=== PATIENT | female | born 1960 | race Hispanic/Latino ===

== ENCOUNTER 2017-08-27 08:28 | Emergency (ER) | payer OTHER ==
[2017-08-27] MEDS ORDERED: IBUPROFEN 600 MG TABLET ONE (11:30)
== END 2017-08-27 12:04 | disposition home or self-care (01) ==
LOC: EDH 08:28
DX: S60.811A Abrasion of right wrist, initial encounter (principal); I10 Essential (primary) hypertension; M19.90 Unspecified osteoarthritis, unspecified site; V49.49XA Driver injured in collision with other motor vehicles in traffic accident, initial encounter; Y93.89 Activity, other specified; Y92.89 Other specified places as the place of occurrence of the external cause; Y99.8 Other external cause status
CPT/HCPCS: 73090; 73110

== ENCOUNTER 2018-12-15 10:00 | Inpatient (IN) | payer OTHER, MEDICARE ==
[~2018-12-15] VITALS: Ht 157.5 cm; Wt 110.4 kg
[2018-12-15 11:58] LABS: APPEARANCE,URINE Cloudy (CLEAR); BILIRUBIN,URINE Negative (NEGATIVE); COLOR,URINE Yellow (YELLOW); GLUCOSE, URINE (UA) 250 mg/dL (NEGATIVE); KETONES,URINE Negative (NEGATIVE); LEUKOCYTE ESTERASE ,URINE Small (NEGATIVE); NITRATE,URINE Negative (NEGATIVE); OCCULT BLOOD,URINE Negative (NEGATIVE); PH,URINE 5.5 (5.0-8.0); PROTEIN,URINE Negative (NEGATIVE)
[2018-12-15 11:59] LABS: BASOPHILS % (AUTO) 0.3 % (0.0-5.0); EOSINOPHILS % (AUTO) 1.1 % (0.0-8.0); HEMATOCRIT 42.3 % (36-48); LYMPHOCYTES % (AUTO) 32.6 % (21.0-51.0); MEAN CORPUSCULAR HEMOGLOBIN 28.7 pg (27.0-33.0); MEAN CORPUSCULAR HGB CONC 34.6 g/dL (32.0-36.0); MEAN CORPUSCULAR VOLUME 83.2 fL (79-99); MONOCYTES % (AUTO) 10.4 % (3.0-13.0); NEUTROPHILS % (AUTO) 55.6 % (40.0-77.0); PLATELET COUNT (AUTO) 254 K/uL (130-400); RED BLOOD CELL COUNT(AUTO) 5.08 MIL/uL (4.00-5.50); RED CELL DISTRIBUTION WIDTH 14.1 % (11.0-15.5); WHITE BLOOD COUNT (AUTO) 6.8 K/uL (4.8-10.8)
[2018-12-15 12:06] VITALS: BP 185/84
[2018-12-15 12:13] LABS: CREATININE 0.8 mg/dL (0.5-1.5); POTASSIUM 3.8 mmol/L (3.5-5.1)
[2018-12-15 12:16] LABS: BACTERIA,URINE Few /HPF (None Seen); RBC,URINE 0-1 /HPF (0-1)
[2018-12-15] MEDS ORDERED: ACET1TAB12 PO (12:26)
[2018-12-15] MEDS ORDERED: FLUT15.845 NS (12:26)
[2018-12-15] MEDS ORDERED: VITAMIN B12 PO (12:26)
[2018-12-15] MEDS ORDERED: SERT100T12 PO (12:26)
[2018-12-15] MEDS ORDERED: ASPI-555 PO (12:26)
[2018-12-15] MEDS ORDERED: AZEL137S11 NS (12:26)
[2018-12-15] MEDS ORDERED: LOSA100T58 PO (12:26)
[2018-12-15] MEDS ORDERED: AMLO5TAB9 PO (12:26)
[2018-12-15] MEDS ORDERED: ERGO500014 PO (12:26)
[2018-12-15] MEDS ORDERED: CYCL10TA7 PO (12:26)
[2018-12-15] MEDS ORDERED: ALBU18HF7 IH (12:26)
[2018-12-15] MEDS ORDERED: GABA-531 PO ×2 (12:26)
[2018-12-15] MEDS ORDERED: MELO-106 PO (12:26)
[2018-12-15] MEDS ORDERED: FURO20TA4 PO (12:26)
[2018-12-15] MEDS ORDERED: ESOM20CA31 PO (12:26)
[2018-12-15] MEDS ORDERED: MVI PO (12:26)
[2018-12-15] MEDS ORDERED: CLON0.5T4 PO (12:26)
--- NOTE | 2018-12-15 17:15 | NUR ---
SPOKE WITH DR. JAUREGUI ABOUT ABNORMAL LABS NO NEW ORDERS AT THIS TIME.
[2018-12-18] VITALS (23 sets, daily range): BP systolic 105–154; BP diastolic 54–76
[2018-12-18] MEDS: CEFAZOLIN SODIUM 1 GM VIAL IVP SCH ×4 (07:00→23:51)
[2018-12-18] MEDS ORDERED: LACTATED RINGERS 1000ML 1,000 ML IV ONE (07:16)
[2018-12-18] MEDS ORDERED: CEFAZOLIN SODIUM 1 GM VIAL ONE ×2 (07:46→10:20)
[2018-12-18] MEDS ORDERED: MIDAZOLAM HCL 1 MG/ML 2ML VIAL ONE (08:23)
[2018-12-18] MEDS ORDERED: GENTAMICIN SULFATE 240 MG in SODIUM CHLORIDE 0.9% 100 ML IV SCH (08:30)
[2018-12-18] MEDS ORDERED: PROPOFOL 10 MG/ML 20ML VIAL IV ONE (08:31)
[2018-12-18] MEDS ORDERED: LIDOCAINE PF 2% 5ML ABBOJECT ONE (08:31)
[2018-12-18] MEDS ORDERED: ROCURONIUM 10MG/1ML SYR 10 MG/ML ML ONE ×2 (08:31→09:04)
[2018-12-18] MEDS ORDERED: FENTANYL CITRATE PF 50 MCG/1 ML 5ML AMP IV ONE (08:46)
[2018-12-18] MEDS ORDERED: TRANEXAMIC ACID 1000MG/10ML IV ONE ×2 (08:50→11:18)
[2018-12-18] MEDS ORDERED: EPHEDRINE SULFATE 50 MG/ML AMPULE ONE (09:27)
[2018-12-18] MEDS ORDERED: GLYCOPYRROLATE 1 MG/5 ML SYRINGE ONE (10:31)
[2018-12-18] MEDS ORDERED: NEOSTIGMINE 5MG/5ML SYR IV ONE (10:32)
[2018-12-18] MEDS: SODIUM CHLORIDE 0.9% 1000ML 1,000 ML IV SCH ×2 (10:35→20:18)
[2018-12-18] MEDS ORDERED: ROPIVACAINE 0.5% 5MG/ML 30ML IJ ONE (10:36)
[2018-12-18] MEDS ORDERED: LIDOCAINE HCL 2% 20ML ONE (10:36)
[2018-12-18] MEDS ORDERED: OXYCODONE HCL 5 MG TAB PO PRN (10:45)
[2018-12-18] MEDS: ACETAMINOPHEN EXTRA STRENGTH 500 MG TABLET PO SCH ×2 (10:45→17:23)
[2018-12-18] MEDS ORDERED: ONDANSETRON HCL 4 MG/2 ML VIAL IVP PRN (10:45)
[2018-12-18] MEDS ORDERED: DiphenhydrAMINE HCL 50 MG/ML VIAL IVP PRN (10:45)
[2018-12-18] MEDS ORDERED: TRAMADOL HCL 50 MG TABLET PO PRN (10:45)
[2018-12-18] MEDS ORDERED: KETOROLAC TROMETHAMINE 15MG/ML IV PRN (10:45)
[2018-12-18] MEDS ORDERED: NON-FORMULARY MEDICATION 1 EACH (Fluticasone Propionate 15.8 ML) IH SCH (12:45)
[2018-12-18] MEDS ORDERED: GABAPENTIN 300 MG CAPSULE PO SCH (12:45)
[2018-12-18] MEDS ORDERED: AZELASTINE HCL 137 MCG IH SCH (12:45)
[2018-12-18] MEDS ORDERED: ALBUTEROL SULFATE 0.083% 2.5 MG/3 ML INH IH PRN (13:00)
[2018-12-18] MEDS: OXYCODONE HCL 5 MG TAB PO PRN ×2 (13:04→20:19)
[2018-12-18] MEDS: CYCLOBENZAPRINE HCL 10 MG TABLET PO SCH ×2 (14:00→20:15)
--- NOTE | 2018-12-18 14:05 | NUR ---
PT CONFIRMS SHE TAKES NORVASC 5 MG PO BID
--- NOTE | 2018-12-18 17:20 | NUR ---
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 AND DAUGHTER GONE ALL DAY TO WORK- WANTS TO GO TO A FACILITY- [facility] AND [facility]- SENT REFERRAL EXCEPT [facility], [facility] Addendum: 12/18/18 at 1724 by DEBORAH RICHARDSON RN CM Amended: Links added.
--- NOTE | 2018-12-18 17:24 | NUR ---
PENDING [facility] EVAL - REFERRAL SENT
[2018-12-18] MEDS: GABAPENTIN 300 MG CAPSULE PO SCH (20:15)
[2018-12-18] MEDS: CALCIUM CARBONATE 500 MG TABLET PO SCH (20:15)
[2018-12-18] MEDS: CELECOXIB 200 MG CAP PO SCH (20:15)
[2018-12-18] MEDS: ASPIRIN 81MG TAB.CHEW PO SCH (20:15)
[2018-12-18] MEDS: CLONAZEPAM 0.5 MG TABLET PO SCH (20:15)
[2018-12-18] MEDS: AMLODIPINE BESYLATE 5 MG TAB PO SCH (21:00)
[2018-12-19] VITALS: BP 115/65
[2018-12-19] MEDS: OXYCODONE HCL 5 MG TAB PO PRN ×3 (00:53→20:03)
[2018-12-19] MEDS: ACETAMINOPHEN EXTRA STRENGTH 500 MG TABLET PO SCH ×3 (03:06→19:18)
[2018-12-19 04:00] VITALS: BP 116/68
[2018-12-19] MEDS: SODIUM CHLORIDE 0.9% 1000ML 1,000 ML IV SCH (05:31)
[2018-12-19 07:50] VITALS: BP 127/72
[2018-12-19] MEDS: LOSARTAN 100 MG TABLET PO SCH (08:45)
[2018-12-19] MEDS: CYANOCOBALAMIN (VITAMIN B-12) 1,000 MCG TABLET PO SCH (08:45)
[2018-12-19] MEDS: CELECOXIB 200 MG CAP PO SCH ×2 (08:45→20:03)
[2018-12-19] MEDS: CYCLOBENZAPRINE HCL 10 MG TABLET PO SCH ×3 (08:45→20:07)
[2018-12-19] MEDS: PANTOPRAZOLE SODIUM 40 MG TABLET.DR PO SCH (08:45)
[2018-12-19] MEDS: CALCIUM CARBONATE 500 MG TABLET PO SCH ×2 (08:45→20:03)
[2018-12-19] MEDS: AMLODIPINE BESYLATE 5 MG TAB PO SCH ×2 (08:45→20:03)
[2018-12-19] MEDS: ASPIRIN 81MG TAB.CHEW PO SCH ×2 (08:47→20:04)
[2018-12-19] MEDS: FUROSEMIDE 20 MG TABLET PO SCH (08:47)
[2018-12-19] MEDS: MULTIVITAMIN TABLET PO SCH (08:47)
[2018-12-19] MEDS: POLYETHYLENE GLYCOL 3350 17 GM POWD.PACK PO SCH (08:47)
[2018-12-19] MEDS ORDERED: ERGOCALCIFEROL (VITAMIN D2) 50,000 UNIT CAPSULE PO SCH (09:00)
[2018-12-19] MEDS ORDERED: SERTRALINE HCL 50 MG TABLET PO SCH ×2 (09:00→21:00)
[2018-12-19 11:25] VITALS: BP 120/74
[2018-12-19 16:09] VITALS: BP 103/58
--- NOTE | 2018-12-19 17:52 | NUR ---
TOSHA HERNANDEZ PT IS ACCEPTED AT [facility]. CHART TAGGED. ALEC WEEMS [facility] STILL PENDING WILL DO IN AM Addendum: 12/19/18 at 1753 by DEBORAH RICHARDSON RN CM Amended: Links added.
[2018-12-19 20:00] VITALS: BP 114/66
[2018-12-19] MEDS: GABAPENTIN 300 MG CAPSULE PO SCH (20:03)
[2018-12-19] MEDS: CLONAZEPAM 0.5 MG TABLET PO SCH (20:03)
[2018-12-20] VITALS: BP 118/64
[2018-12-20] MEDS: OXYCODONE HCL 5 MG TAB PO PRN ×3 (01:32→14:42)
[2018-12-20] MEDS: ACETAMINOPHEN EXTRA STRENGTH 500 MG TABLET PO SCH ×3 (02:45→18:45)
[2018-12-20 04:00] VITALS: BP 109/54
[2018-12-20 07:56] VITALS: BP 119/55
[2018-12-20] MEDS: AMLODIPINE BESYLATE 5 MG TAB PO SCH (09:00)
[2018-12-20] MEDS: PANTOPRAZOLE SODIUM 40 MG TABLET.DR PO SCH (10:44)
[2018-12-20] MEDS: FUROSEMIDE 20 MG TABLET PO SCH (10:45)
[2018-12-20] MEDS: MULTIVITAMIN TABLET PO SCH (10:45)
[2018-12-20] MEDS: CELECOXIB 200 MG CAP PO SCH (10:45)
[2018-12-20] MEDS: CALCIUM CARBONATE 500 MG TABLET PO SCH (10:45)
[2018-12-20] MEDS: CYCLOBENZAPRINE HCL 10 MG TABLET PO SCH ×2 (10:45→14:37)
[2018-12-20] MEDS: CYANOCOBALAMIN (VITAMIN B-12) 1,000 MCG TABLET PO SCH (10:46)
[2018-12-20] MEDS: LOSARTAN 100 MG TABLET PO SCH (10:46)
[2018-12-20] MEDS: ASPIRIN 81MG TAB.CHEW PO SCH (10:46)
[2018-12-20] MEDS: POLYETHYLENE GLYCOL 3350 17 GM POWD.PACK PO SCH (10:55)
[2018-12-20 11:06] VITALS: BP 130/64
[2018-12-20 16:00] VITALS: BP 90/52
[2018-12-20 16:20] VITALS: BP 116/68
[2018-12-20] MEDS ORDERED: HYDR-4457 PO (17:04)
[2018-12-20] MEDS ORDERED: ASPI-1005 PO (17:04)
--- NOTE | 2018-12-20 18:26 | NUR ---
i attempted to call report to [facility] and was told by the nurse that she had an emergency and would have to call me back; i gave her the number here at nurses station.
--- NOTE | 2018-12-20 18:30 | NUR ---
pt stated understanding of all d/c instructions on after care for a knee replacement; instructed on wound care daily, signs and symptoms of infection to watch for and report,; wbat and to use walker at all times and follow physical therapy recomendations; new persricption for pain medications and aspirin for blood thinner and changes made to home medications; IV access removed, pending goden palms to call back and take report and then pick pt up. pt stated understanding of all instructions. dressing changed to right knee, pt has a well approx. inc. line w/ absorbable sutures in place and dermabond glue; no drainage, redness or edema noted; cleansed with betadine and then clean 4x4 gauze and medipore tape.
--- NOTE | 2018-12-20 19:15 | NUR ---
[facility] REPORT GIVEN TO [facility] [phone]. INFORMED PATIENT IN ROOM 429 AND READY TO BE PICKED UP. COPY OF DR. JAUREGUI DISCHARGE ORDERS AND ORIGINAL RX (NORCO, ASPIRIN) PLACED IN CHART COPY FOLDER.
[2018-12-21] MEDS ORDERED: BISACODYL 10 MG SUPP.RECT RC PRN (10:45)
== END 2018-12-20 20:00 | DRG 470 ==
LOC: DAHIP 12-18 06:58 → 4AH 12-18 11:27
PROVIDERS: ADMIT Orthopaedic Surgery; ATTEND Orthopaedic Surgery
PROC: 0SRC0J9 Replacement of Right Knee Joint with Synthetic Substitute, Cemented, Open Approach (ICD-10-PCS; principal; 2018-12-18 09:08)
DX: M17.0 Bilateral primary osteoarthritis of knee (principal); I10 Essential (primary) hypertension; G89.29 Other chronic pain; Z90.49 Acquired absence of other specified parts of digestive tract; Z82.49 Family history of ischemic heart disease and other diseases of the circulatory system; Z83.3 Family history of diabetes mellitus; Z87.891 Personal history of nicotine dependence
CPT/HCPCS: 36415; 80048; 81001; 85025; 87641; 88304; 88311; 94664; 97039; G0378; J0690; J1580; J1885; J2001; J2250; J2405; J2704; J2710; J2795; J3010; J3490; J7030; J7120